=== PATIENT | female | born 1955 | race Caucasian/White ===

== ENCOUNTER 2021-09-06 16:19 | Inpatient (IN) | payer SELFPAY ==
[2021-09-06 16:42] LABS: #Basophils 0.1 thou/uL (0.0-0.2); #Eosinphils 0.1 thou/uL (0.0-0.7); #Lymphocytes 3.7 thou/uL (1.20-3.40); #Monocytes 0.6 thou/uL (0.11-0.59); #Neutrophils 5.8 thou/uL (1.40-6.50); %Basophils 1.1 % (0.0-1.0); %Eosinophils 1.3 % (0.0-10.0); %Lymphocytes 35.5 % (21.0-51.0); Hemoglobin 16.8 g/dL (12.0-16.0); Mean Corpuscular HGB CONC 34.2 g/dL (32.0-36.0); Mean Corpuscular Hemoglobin 31.4 pg (27.0-31.0); Mean Corpuscular Volume 91.6 fL (78.0-98.0); Mean Platelet Volume 8.4 fL (7.4-10.4); Platelet Count 201 thou/uL (130-400); RBC Distribution Width 12.8 % (11.5-14.5); Red Blood Cell (RBC) Count 5.36 mill/uL (4.20-5.40); White Blood Cell (WBC) Count 10.3 thou/uL (4.8-10.8)
[2021-09-06 17:02] LABS: ALT (SGPT) 15 U/L (8-55); AST (SGOT) 14 U/L (5-34); Albumin 3.9 g/dL (3.4-4.8); Alkaline Phosphatase 85 U/L (40-110); Anion Gap 10 mmol/L (10-20); BUN (Urea Nitrogen) 11 mg/dL (9.8-20.1); Bilirubin, Total 1.1 mg/dL (0.2-1.2); Calc. Creatinine Clearance 0 mL/min (70-130); Calcium 9.1 mg/dL (7.8-10.44); Carbon Dioxide 28 mmol/L (23-31); Chloride 106 mmol/L (98-107); Globulin 2.7 g/dL (2.4-3.5); Glucose 187 mg/dL (80-115); Potassium 4.2 mmol/L (3.5-5.1); Protein, Total 6.6 g/dL (5.8-8.1); Sodium 140 mmol/L (136-145)
[2021-09-06 18:49] VITALS: BMI 37.6
[2021-09-06] MEDS ORDERED: Ondansetron PF 4 MG/2 ML Vial IVP PRN (19:27)
[2021-09-06] MEDS ORDERED: Acetaminophen 325 MG TAB PO PRN (19:27)
[2021-09-06] MEDS ORDERED: Nitroglycerin 0.4 MG TAB (25 Tab Bottle) SL PRN (19:27)
[2021-09-06] MEDS ORDERED: Aspirin 325 MG TAB PO SCH (19:30)
[2021-09-06] MEDS ORDERED: Dextrose 50% Abboject 50 ML SYRINGE SLOW IVP PRN (19:32)
[2021-09-06] MEDS ORDERED: HumaLOG 300 UNITS/3 ML VIAL SC PRN (19:32)
[2021-09-06] MEDS ORDERED: Dextrose 5% in Water 1,000 ML IV PRN (19:32)
[2021-09-06 20:02] LABS: Troponin I Less than 0.010 ng/mL (< 0.028)
[2021-09-06] MEDS: Atorvastatin Calcium 20 MG TAB PO SCH (20:38)
[2021-09-06] MEDS: Carvedilol 3.125 MG TAB PO SCH (20:38)
[2021-09-06] MEDS: Montelukast Sodium 10 mg Tablet PO SCH (20:38)
[2021-09-06] MEDS: Pregabalin 50 MG CAP PO SCH (20:38)
[2021-09-07 00:23] LABS: Troponin I Less than 0.010 ng/mL (< 0.028)
[2021-09-07 05:43] LABS: #Basophils 0.2 thou/uL (0.0-0.2); #Eosinphils 0.2 thou/uL (0.0-0.7); #Lymphocytes 3.7 thou/uL (1.20-3.40); #Monocytes 0.7 thou/uL (0.11-0.59); #Neutrophils 4.1 thou/uL (1.40-6.50); %Eosinophils 2.6 % (0.0-10.0); %Monocytes 7.9 % (0.0-10.0); %Neutrophils 46.4 % (42.0-75.0); Hemoglobin 15.5 g/dL (12.0-16.0); Mean Corpuscular HGB CONC 33.4 g/dL (32.0-36.0); Mean Corpuscular Hemoglobin 31.1 pg (27.0-31.0); Mean Platelet Volume 8.7 fL (7.4-10.4); Platelet Count 167 thou/uL (130-400); RBC Distribution Width 12.8 % (11.5-14.5); Red Blood Cell (RBC) Count 4.99 mill/uL (4.20-5.40); White Blood Cell (WBC) Count 8.9 thou/uL (4.8-10.8)
[2021-09-07 06:10] LABS: Anion Gap 10 mmol/L (10-20); BUN (Urea Nitrogen) 15 mg/dL (9.8-20.1); Calc. Creatinine Clearance 105 mL/min (70-130); Calcium 9.3 mg/dL (7.8-10.44); Carbon Dioxide 27 mmol/L (23-31); Cardiac Risk 3.3 (Less than 4.5); Chloride 105 mmol/L (98-107); Cholesterol 95 mg/dl (< 200 Desired); Glucose 340 mg/dL (80-115); HDL Cholesterol 29 mg/dL (>60 Neg Risk); LDL Cholesterol, Calculated 36 mg/dL; Potassium 4.2 mmol/L (3.5-5.1); Sodium 138 mmol/L (136-145); Triglycerides 150 mg/dL (Less than 150)
[2021-09-07] MEDS: Pregabalin 50 MG CAP PO SCH ×2 (08:50→21:41)
[2021-09-07] MEDS: Aspirin 325 mg Enteric Coated Tablet PO SCH (08:53)
[2021-09-07] MEDS: Carvedilol 3.125 MG TAB PO SCH ×2 (08:53→21:42)
[2021-09-07] MEDS ORDERED: FLU VACC QS2021-22(6MOS UP)/PF 60 MCG/0.5 ML SYRINGE IM ONE (09:00)
[2021-09-07] MEDS ORDERED: ADENOSINE 60 MG/20 ML VIAL ONE (10:22)
[2021-09-07 11:37] LABS: SARS-CoV-2 PCR by NAA Not Detected (NotDetected)
[2021-09-07] MEDS ORDERED: Communication Order-Pharmacy FS SCH (16:30)
[2021-09-07] MEDS ORDERED: Lantus 1000 UNITS/10 ML VIAL SC SCH ×2 (17:19→17:30)
[2021-09-07] MEDS ORDERED: HumaLOG 300 UNITS/3 ML VIAL SC PRN (17:21)
[2021-09-07] MEDS ORDERED: Dextrose 5% in Water 1,000 ML IV PRN (17:21)
[2021-09-07] MEDS ORDERED: Dextrose 50% Abboject 50 ML SYRINGE SLOW IVP PRN (17:21)
[2021-09-07] MEDS: Sodium Chloride 0.9% 1,000 ML IV SCH (18:04)
[2021-09-07] MEDS ORDERED: Melatonin 3 MG TAB PO SCH (20:16)
[2021-09-07] MEDS: Atorvastatin Calcium 20 MG TAB PO SCH (21:42)
[2021-09-07] MEDS: Montelukast Sodium 10 mg Tablet PO SCH (21:42)
[2021-09-07] MEDS: HumaLOG 300 UNITS/3 ML VIAL SC PRN (21:43)
[2021-09-08] MEDS ORDERED: Lorazepam 1 MG TAB PO SCH (01:15)
[2021-09-08] MEDS: Sodium Chloride 0.9% 1,000 ML IV SCH (04:25)
[2021-09-08] MEDS: Pregabalin 50 MG CAP PO SCH (06:11)
[2021-09-08] MEDS: Aspirin 325 mg Enteric Coated Tablet PO SCH (06:12)
[2021-09-08] MEDS: Carvedilol 3.125 MG TAB PO SCH (06:12)
[2021-09-08] MEDS ORDERED: Midazolam HCl 2 mg/2 ml Vial ONE (07:24)
[2021-09-08] MEDS ORDERED: Fentanyl 100 MCG/2 ML VIAL ONE (07:25)
[2021-09-08] MEDS ORDERED: Adenosine 6 MG/2 ML VIAL ONE (07:25)
[2021-09-08] MEDS ORDERED: Nitroglycerin 100MG/250ML BOT 0 ML ONE (07:25)
[2021-09-08] MEDS ORDERED: Sodium Chloride 0.9% 200 ML IV PRN (09:57)
[2021-09-08] MEDS ORDERED: Nitroglycerin 0.4 MG TAB (25 Tab Bottle) SL PRN (09:57)
[2021-09-08] MEDS ORDERED: Iopamidol 370 76% 100 ML VIAL ONE (09:57)
[2021-09-08] MEDS ORDERED: Acetaminophen/Codeine 30-300mg Tablet PO PRN ×2 (09:57)
[2021-09-08] MEDS ORDERED: Sodium Chloride 0.9% 1,000 ML IV SCH (10:00)
[2021-09-08] MEDS: HumaLOG 300 UNITS/3 ML VIAL SC PRN (11:35)
[2021-09-08 12:07] VITALS: BP 166/72; TEMP 97.4
== END 2021-09-08 13:05 | disposition home or self-care (01) | DRG 287 ==
LOC: ERS 16:19 → 2SW 17:42 → OBSVTOIN 09-08 09:52
PROVIDERS: ADMIT Internal Medicine; ATTEND Internal Medicine
PROC: 4A023N7 Measurement of Cardiac Sampling and Pressure, Left Heart, Percutaneous Approach (ICD-10-PCS; principal; 2021-09-08)
PROC: B2151ZZ Fluoroscopy of Left Heart using Low Osmolar Contrast (ICD-10-PCS; 2021-09-08)
PROC: B2131ZZ Fluoroscopy of Multiple Coronary Artery Bypass Grafts using Low Osmolar Contrast (ICD-10-PCS; 2021-09-08)
DX: R07.9 Chest pain, unspecified (principal); Z20.822 Contact with and (suspected) exposure to COVID-19; I10 Essential (primary) hypertension; E78.5 Hyperlipidemia, unspecified; I25.10 Atherosclerotic heart disease of native coronary artery without angina pectoris; E78.00 Pure hypercholesterolemia, unspecified; F17.210 Nicotine dependence, cigarettes, uncomplicated; E11.69 Type 2 diabetes mellitus with other specified complication; Z79.82 Long term (current) use of aspirin; Z79.4 Long term (current) use of insulin; Z79.84 Long term (current) use of oral hypoglycemic drugs; Z79.899 Other long term (current) drug therapy; Z95.1 Presence of aortocoronary bypass graft; Z82.49 Family history of ischemic heart disease and other diseases of the circulatory system; Z84.1 Family history of disorders of kidney and ureter; Z81.8 Family history of other mental and behavioral disorders; Z90.710 Acquired absence of both cervix and uterus
CPT/HCPCS: 36415; 36416; 71045; 78452; 80048; 80053; 80061; 84484; 85025; 93005; 93017; 93455; 93458; 94760; 99152; A9500; C1769; G0378; J0153; J1815; J2250; J3010; J7050; Q9967; U0003; U0005

== ENCOUNTER 2022-02-25 07:48 | Outpatient (CLI) | payer MEDICARE, OTHER ==
[2022-02-25] MEDS ORDERED: Iopamidol 370 76% 100 ML VIAL ONE (14:36)
== END 2022-02-25 07:49 | disposition home or self-care (01) ==
LOC: BICCT 07:48
PROVIDERS: ATTEND Internal Medicine Cardiovascular Disease
DX: M79.604 Pain in right leg (principal); M79.605 Pain in left leg; I70.0 Atherosclerosis of aorta; I70.1 Atherosclerosis of renal artery; I70.8 Atherosclerosis of other arteries; K80.20 Calculus of gallbladder without cholecystitis without obstruction; N20.0 Calculus of kidney; I70.203 Unspecified atherosclerosis of native arteries of extremities, bilateral legs
CPT/HCPCS: 75635; 82565

== ENCOUNTER 2022-10-27 06:56 | Outpatient (CLI) | payer MEDICARE, OTHER | END 2022-10-27 06:57 | disposition home or self-care (01) | LOC: BICULT 06:56 | PROVIDERS: ATTEND Family Medicine | DX: R10.13 Epigastric pain (principal); K80.20 Calculus of gallbladder without cholecystitis without obstruction; N20.0 Calculus of kidney | CPT/HCPCS: 76705 ==

== ENCOUNTER 2023-10-06 12:49 | Outpatient (CLI) | payer MEDICARE, OTHER ==
[2023-10-06 15:19] LABS: #Basophils 0.1 10x3/uL (0.0-0.2); #Eosinphils 0.1 10x3/uL (0.0-0.5); #Monocytes 0.6 10x3/uL (0.0-1.1); #Neutrophils 5.4 10x3/uL (1.5-8.4); %Basophils 0.9 % (0.0-2.0); %Eosinophils 1.3 % (0.0-6.0); %Lymphocytes 36.4 % (18.0-47.0); %Monocytes 6.3 % (0.0-10.0); %Neutrophils 54.7 % (40.0-75.0); Hematocrit 47.5 % (34.9-44.5); Mean Corpuscular HGB CONC 33.7 g/dL (32.0-36.0); Mean Corpuscular Hemoglobin 30.8 pg (27.0-33.0); Mean Corpuscular Volume 91.5 fl (81.6-98.3); Mean Platelet Volume 11.6 fl (7.4-10.4); Platelet Count 206 10x3/uL (150-450); RBC Distribution Width 13.7 % (11.5-14.5); Red Blood Cell (RBC) Count 5.19 10x6/uL (3.90-5.03); White Blood Cell (WBC) Count 9.8 10x3/uL (3.5-10.5)
[2023-10-06 15:44] LABS: ALT (SGPT) 19 U/L (8-55); AST (SGOT) 19 U/L (5-34); Albumin 4.1 g/dL (3.4-4.8); Alkaline Phosphatase 66 U/L (40-110); Anion Gap 18 mmol/L (10-20); BUN (Urea Nitrogen) 24 mg/dL (9.8-20.1); Bilirubin, Direct 0.3 mg/dL (0.1-0.3); Bilirubin, Total 0.9 mg/dL (0.2-1.2); Calc. Creatinine Clearance 0 mL/min (70-130); Calcium 9.4 mg/dL (7.8-10.44); Carbon Dioxide 24 mmol/L (23-31); Chloride 107 mmol/L (98-107); Estimated GFR 72; Glucose 79 mg/dL (80-115); Potassium 4.7 mmol/L (3.5-5.1); Protein, Total 6.9 g/dL (5.8-8.1); Sodium 144 mmol/L (136-145)
== END 2023-10-06 12:50 | disposition home or self-care (01) ==
LOC: LABBT 12:49
PROVIDERS: ATTEND Surgery
DX: Z01.818 Encounter for other preprocedural examination (principal); K80.20 Calculus of gallbladder without cholecystitis without obstruction
CPT/HCPCS: 80048; 80076; 85025; 93005; 93010

== ENCOUNTER 2023-10-11 08:31 | Day surgery (SDC) | payer MEDICARE, OTHER ==
[2023-10-06 13:35] VITALS: BMI 38.7
[2023-10-11] MEDS ORDERED: Lidocaine 1% PF 5 ML VIAL ONE ×2 (10:16→12:06)
[2023-10-11] MEDS ORDERED: fentaNYL PF 100 MCG/2 ML SYRINGE ONE ×2 (10:16→13:29)
[2023-10-11] MEDS ORDERED: PROPOFOL 20 ML ONE (10:16)
[2023-10-11] MEDS ORDERED: Rocuronium Bromide 10 MG/ML (10ML VIAL) ONE ×2 (10:16→12:06)
[2023-10-11] MEDS ORDERED: EPINEPHrine 1 MG/ML VIAL ONE (11:36)
[2023-10-11] MEDS ORDERED: Indocyanine Green 25 MG/10 ML VIAL ONE (11:36)
[2023-10-11] MEDS ORDERED: Bupivacaine 0.25% HCL 30 ML VIAL ONE (11:37)
[2023-10-11] MEDS ORDERED: CEFAZOLIN 2 GM VIAL ONE (11:51)
[2023-10-11] MEDS ORDERED: Sodium Chloride 0.9% 100 ML ONE (11:51)
[2023-10-11] MEDS ORDERED: Ketorolac Tromethamine 30 MG/ML VIAL ONE ×2 (12:06→12:42)
[2023-10-11] MEDS ORDERED: Ondansetron PF 4 MG/2 ML Vial ONE ×3 (12:06→13:48)
[2023-10-11] MEDS ORDERED: PROPOFOL 200 MG/20 ML VIAL ONE (12:06)
[2023-10-11] MEDS ORDERED: SUGAMMADEX SODIUM 200 MG/2 ML VIAL ONE ×2 (12:44→12:52)
[2023-10-11] MEDS ORDERED: hydrALAZINE 20 MG/ML VIAL ONE ×2 (13:12→13:20)
[2023-10-11] MEDS ORDERED: fentaNYL 50 mcg/mL 1 mL Vial ONE (13:48)
[2023-10-11] MEDS ORDERED: diphenhydrAMINE 50 MG/ML VIAL ONE (14:48)
== END 2023-10-11 16:08 | disposition home or self-care (01) ==
LOC: SDC 08:31
PROVIDERS: ATTEND Surgery
PROC: 0FT44ZZ Resection of Gallbladder, Percutaneous Endoscopic Approach (ICD-10-PCS; principal; 2023-10-11)
DX: K80.20 Calculus of gallbladder without cholecystitis without obstruction (principal); E11.9 Type 2 diabetes mellitus without complications; Z87.891 Personal history of nicotine dependence; Z87.442 Personal history of urinary calculi; Z90.710 Acquired absence of both cervix and uterus; Z88.2 Allergy status to sulfonamides; Z88.8 Allergy status to other drugs, medicaments and biological substances; Z79.01 Long term (current) use of anticoagulants; Z79.82 Long term (current) use of aspirin; Z79.84 Long term (current) use of oral hypoglycemic drugs; Z79.4 Long term (current) use of insulin; Z79.899 Other long term (current) drug therapy
CPT/HCPCS: 47562; 82962; J0171; J0360; J3010; 36416; 88304; J1200; J1885; J2405; J2704; J3490; S0020

== ENCOUNTER 2024-08-05 14:19 | Outpatient (CLI) | payer MEDICARE, OTHER ==
[~2024-08-05 14:19] MED LIST: Iopamidol 370 76% 100 ML VIAL ONE
== END 2024-08-05 14:20 | disposition home or self-care (01) ==
LOC: BICCT 14:19
PROVIDERS: ATTEND Thoracic Surgery (Cardiothoracic Vascular Surgery)
DX: I70.203 Unspecified atherosclerosis of native arteries of extremities, bilateral legs (principal)
CPT/HCPCS: 75635; 82565; Q9967

== ENCOUNTER 2024-08-16 13:41 | Outpatient (CLI) | payer MEDICARE, OTHER ==
[2024-08-16 15:22] LABS: #Basophils 0.04 10x3/uL (0.0-0.2); %Basophils 0.5 % (0.0-1.0); %Eosinophils 1.4 % (0.0-10.0); %Lymphocytes 32.4 % (21.0-51.0); %Monocytes 7.1 % (0.0-10.0); %Neutrophils 57.9 % (42.0-75.0); Hematocrit 47.3 % (36.0-47.0); Hemoglobin 15.4 g/dL (12.0-16.0); Mean Corpuscular HGB CONC 32.6 g/dL (32.0-36.0); Mean Corpuscular Hemoglobin 30.6 pg (27.0-31.0); Mean Corpuscular Volume 93.8 fL (78.0-98.0); Mean Platelet Volume 11.7 fL (7.4-10.4); Platelet Count 167 10x3/uL (130-400); RBC Distribution Width 13.8 % (11.5-14.5); Red Blood Cell (RBC) Count 5.04 mill/uL (4.20-5.40)
[2024-08-16 15:39] LABS: Anion Gap 16 mmol/L (10-20); BUN (Urea Nitrogen) 18 mg/dL (9.8-20.1); Calc. Creatinine Clearance 0 mL/min (70-130); Calcium 9.1 mg/dL (7.8-10.44); Carbon Dioxide 24 mmol/L (23-31); Chloride 103 mmol/L (98-107); Estimated GFR 70; Glucose 378 mg/dL (80-115); Potassium 4.1 mmol/L (3.5-5.1); Sodium 139 mmol/L (136-145)
== END 2024-08-16 13:42 | disposition home or self-care (01) ==
LOC: LABBT 13:41
PROVIDERS: ATTEND Thoracic Surgery (Cardiothoracic Vascular Surgery)
DX: Z01.812 Encounter for preprocedural laboratory examination (principal); I73.9 Peripheral vascular disease, unspecified
CPT/HCPCS: 80048; 85025

== ENCOUNTER 2024-11-14 17:38 | Emergency (ER) | payer MEDICARE, OTHER ==
[2024-11-14 18:05] LABS: #Basophils 0.04 10x3/uL (0.0-0.2); %Basophils 0.6 % (0.0-1.0); %Eosinophils 1.5 % (0.0-10.0); %Lymphocytes 12.2 % (21.0-51.0); %Monocytes 7.3 % (0.0-10.0); %Neutrophils 77.8 % (42.0-75.0); Hematocrit 48.1 % (36.0-47.0); Hemoglobin 16.2 g/dL (12.0-16.0); Mean Corpuscular HGB CONC 33.7 g/dL (32.0-36.0); Mean Corpuscular Hemoglobin 30.2 pg (27.0-31.0); Mean Corpuscular Volume 89.6 fL (78.0-98.0); Mean Platelet Volume 10.7 fL (7.4-10.4); Platelet Count 159 10x3/uL (130-400); RBC Distribution Width 13.6 % (11.5-14.5); Red Blood Cell (RBC) Count 5.37 mill/uL (4.20-5.40)
[2024-11-14 18:21] LABS: ALT (SGPT) 18 U/L (8-55); AST (SGOT) 21 U/L (5-34); Albumin 3.5 g/dL (3.4-4.8); Alkaline Phosphatase 88 U/L (40-110); Anion Gap 13 mmol/L (10-20); BUN (Urea Nitrogen) 23 mg/dL (9.8-20.1); Bilirubin, Total 1.1 mg/dL (0.2-1.2); Calc. Creatinine Clearance 0 mL/min (70-130); Calcium 9.3 mg/dL (7.8-10.44); Carbon Dioxide 27 mmol/L (23-31); Chloride 104 mmol/L (98-107); Estimated GFR 76; Globulin 4.3 g/dL (2.4-3.5); Glucose 228 mg/dL (80-115); Potassium 4.3 mmol/L (3.5-5.1); Protein, Total 7.8 g/dL (5.8-8.1); Sodium 140 mmol/L (136-145)
[2024-11-14 18:27] LABS: Troponin I Less than 0.010 ng/mL (< 0.028)
[2024-11-14 18:42] LABS: Bilirubin Negative (Negative); Blood, Urine Trace (Negative); Glucose, Urine (Dipstick) >=1000 mg/dL (Negative); Ketone, Urine Negative (Negative); Leukocyte Negative (Negative); Nitrite Negative (Negative); Protein, Urine (Dipstick) 30 mg/dL (Neg-Trace); Urobilinogen 0.2 mg/dL (Less than 2)
[2024-11-14 18:45] LABS: Clarity Clear (Clear)
[2024-11-14] MEDS ORDERED: Meclizine HCl 25 MG TAB ONE (19:52)
[2024-11-14 20:13] LABS: RBC/HPF 0-3 HPF (0-3)
== END 2024-11-14 20:15 | disposition home or self-care (01) ==
LOC: ERS 17:38
DX: I95.1 Orthostatic hypotension (principal); R29.700 NIHSS score 0; I10 Essential (primary) hypertension; E11.9 Type 2 diabetes mellitus without complications; Z87.891 Personal history of nicotine dependence
CPT/HCPCS: 36415; 36416; 70450; 71045; 80053; 81001; 84484; 85025; 93005